=== PATIENT | male | born 1940 | race Caucasian/White ===

== ENCOUNTER 2017-03-29 03:14 | Emergency (ER) | payer MEDICARE, BC ==
[~2017-03-29 03:14] MED LIST: ALLO100T30 PO; LEVE100S6 PO; LEVE750T37 PO; METH500T97 PO; VALS80TA3 PO
[2017-03-29] MEDS ORDERED: LEVETIRACETAM 500 MG in SODIUM CHLORIDE 0.9% 100 ML IV ONE (03:30)
[2017-03-29] MEDS ORDERED: SODIUM CHLORIDE FLUSH 10ML SYR IVF ONE (03:30)
[2017-03-29] MEDS ORDERED: SODIUM CHLORIDE 0.9% 1,000ML IVBOLUS ONE (03:30)
[2017-03-29 03:39] LABS: HEMOGLOBIN 12.6 g/dL (13.7-18.0); WHITE BLOOD COUNT 4.7 x10^3/uL (3.4-10)
[2017-03-29 03:52] LABS: BLOOD UREA NITROGEN 18 mg/dL (7-18)
[2017-03-29 03:56] LABS: ASPARTATE AMINO TRANSFERASE 28 U/L (15-37)
[2017-03-29 04:20] VITALS: BP 147/73
== END 2017-03-29 04:37 | disposition home or self-care (01) ==
LOC: ED 03:20
DX: G40.319 Generalized idiopathic epilepsy and epileptic syndromes, intractable, without status epilepticus (principal); I10 Essential (primary) hypertension; Z87.891 Personal history of nicotine dependence
CPT/HCPCS: 36415; 80053; 80307; 85025; 93005; 96361; 96374; 99285; J1953; J7030

== ENCOUNTER 2017-05-07 03:19 | Emergency (ER) | payer MEDICARE, BC ==
[~2017-05-07] VITALS: Ht 177.8 cm; Wt 85.3 kg
[2017-05-07] MEDS ORDERED: SODIUM CHLORIDE FLUSH 10ML SYR IVF ONE (03:30)
[2017-05-07] MEDS ORDERED: SODIUM CHLORIDE 0.9% 1,000ML IVBOLUS ONE (03:30)
[2017-05-07 03:53] LABS: HEMATOCRIT 39.4 % (39.2-51.8); HEMOGLOBIN 13.3 g/dL (13.7-18.0); WHITE BLOOD COUNT 4.7 x10^3/uL (3.4-10)
[2017-05-07 04:05] LABS: ASPARTATE AMINO TRANSFERASE 25 U/L (15-37); BLOOD UREA NITROGEN 20 mg/dL (7-18)
[2017-05-07 04:08] LABS: DAU SCREEN DISCLAIMER
[2017-05-07] MEDS ORDERED: LEVETIRACETAM 500 MG TABLET PO ONE (04:30)
[2017-05-07 04:38] VITALS: BP 147/83
== END 2017-05-07 05:26 | disposition home or self-care (01) ==
LOC: ED 05:20
DX: R56.9 Unspecified convulsions (principal); Z91.14 Patient's other noncompliance with medication regimen; I10 Essential (primary) hypertension
CPT/HCPCS: 36415; 70450; 80053; 80177; 80307; 85025; 93005; 96360; 99285; J7030; G0479

== ENCOUNTER 2020-03-02 10:45 | Emergency (ER) | payer MEDICARE, BC ==
[~2020-03-02] VITALS: Ht 175.3 cm; Wt 85.2 kg
[2020-03-02] MEDS ORDERED: SODIUM CHLORIDE 0.9% 1,000 ML IV ONE (11:11)
[2020-03-02] MEDS ORDERED: ONDANSETRON 2MG/ML, 2ML ONE (11:23)
[2020-03-02] MEDS ORDERED: HYDROmorphone 1 MG/ML, 1ML INJ ONE (11:23)
[2020-03-02] MEDS ORDERED: ONDANSETRON 2MG/ML, 2ML IVPush ONE (11:30)
[2020-03-02] MEDS ORDERED: MORPHINE SULFATE 4 MG/ML, 1ML IVPush PRN (11:30)
[2020-03-02 11:33] LABS: MD NO
[2020-03-02 11:39] LABS: ANION GAP 8 mmol/L (5-15); CALCIUM 9.1 mg/dL (8.5-10.1); CHLORIDE 101 mmol/L (98-107)
[2020-03-02 11:43] LABS: ALANINE AMINOTRANSFERASE 21 U/L (12-78); ALKALINE PHOSPHATASE 57 U/L (45-117); BILIRUBIN,TOTAL 0.6 mg/dL (0.2-1.0); CREATININE 1.69 mg/dL (0.7-1.3); TOTAL PROTEIN 6.9 g/dL (6.4-8.2)
[2020-03-02 11:54] LABS: BASOPHILS # (AUTO) 0.04 x10^3/uL (0-0.1); BASOPHILS % (AUTO) 1 % (0-1); EOSINOPHILS # (AUTO) 0.11 x10^3/uL (0-0.4); EOSINOPHILS % (AUTO) 2 % (1-7); LYMPHOCYTES # (AUTO) 0.88 x10^3/uL (1-3.4); LYMPHOCYTES % (AUTO) 13 % (22-44); MEAN CORPUSCULAR HGB CONC 33.8 g/dL (33.2-36.2); MEAN CORPUSCULAR VOLUME 103.6 fL (81-97); MEAN PLATELET VOLUME 7.4 fL (7.4-10.4); MONOCYTES # (AUTO) 0.88 x10^3/uL (0.2-0.8); MONOCYTES % (AUTO) 13 % (2-9); NEUTROPHILS # (AUTO) 4.75 x10^3/uL (1.8-6.8); NEUTROPHILS % (AUTO) 71 % (42-75); PLATELET COUNT 208 x10^3/uL (130-400); RED BLOOD COUNT 3.56 x10^6/uL (4.38-5.82); RED CELL DISTRIBUTION WIDTH 12.8 % (9.4-14.8)
[2020-03-02] MEDS ORDERED: OMNIPAQUE 350 MG/ML, 100ML BOTTLE ONE (12:23)
[2020-03-02 13:40] LABS: MICROSCOPIC NOT IND
[2020-03-02 14:17] VITALS: BP 134/50
--- NOTE | 2020-03-02 14:17 | NUR ---
BREAK RN: ASSUMED CARE FOR DISCHARGE ONLY Patient/Caregiver given discharge instructions and they have confirmed that they understand the instructions. Patient ambulatory with steady gait.
== END 2020-03-02 14:19 | disposition home or self-care (01) ==
LOC: ED 11:46
DX: A09 Infectious gastroenteritis and colitis, unspecified (principal); I12.9 Hypertensive chronic kidney disease with stage 1 through stage 4 chronic kidney disease, or unspecified chronic kidney disease; N18.3 Chronic kidney disease, stage 3 (moderate); Z87.891 Personal history of nicotine dependence; Z96.659 Presence of unspecified artificial knee joint
CPT/HCPCS: 36415; 74177; 80053; 81003; 83690; 85025; 96361; 96374; 99285; J2405; J7030; Q9967